=== PATIENT | male | born 1960 | race Two or more races ===

== ENCOUNTER → 2023-08-11 | Emergency (ER) | payer OTHER ==
[~2023-08-11] VITALS: Ht 175.3 cm; Wt 79.4 kg
[2023-08-11 20:05] LABS: HEMATOCRIT 37.1 % (39.0-48.0); HEMOGLOBIN 11.5 g/dL (13-16.00); MEAN CORPUSCULAR HEMOGLOBIN 19.7 pg (27.00-32.0); MEAN CORPUSCULAR HGB CONC 30.9 g/dl (32.0-36.0); PLATELET COUNT 249 K/uL (150-450); RED BLOOD COUNT 5.83 M/uL (4.00-6.00); RED CELL DISTRIBUTION WIDTH 17.5 % (11.5-14.5)
[2023-08-11 20:06] LABS: MEAN CELL VOLUME 63.7 fL (80.0-100.00)
[2023-08-11 20:36] LABS: CALCIUM 9.6 mg/dL (8.5-10.1); CREATININE SERUM 0.99 mg/dL (0.70-1.30); GFR 76.35; POTASSIUM 3.92 mEq/L (3.5-5.1)
[2023-08-11 21:03] LABS: URINE APPEARANCE Cloudy; URINE BILIRRUBIN Negative (NEGATIVE); URINE BLOOD Large; URINE COLOR Yellow; URINE GLUCOSE Negative (NEGATIVE); URINE LEUKOCYTE Trace; URINE NITRATE Negative; URINE PROTEIN 30 (NEGATIVE); URINE UROBILINOGEN 0.2 E.U./dl
[2023-08-11 21:07] LABS: URINE BACTERIA 17.6 uL (0.0-1933); URINE EPITHELIAL CELLS 5.8 uL (0.0-38.8); URINE RBC 311.5 uL (0.0-20.8)
== END | disposition home or self-care (01) ==
LOC: ER 16:44
PROVIDERS: General Practice
DX: N20.1 Calculus of ureter (principal); R10.32 Left lower quadrant pain; Z87.442 Personal history of urinary calculi; N13.39 Other hydronephrosis; N39.0 Urinary tract infection, site not specified